=== PATIENT | male | born 1950 | race Caucasian/White ===

== ENCOUNTER 2018-03-24 05:00 | Day surgery (SDC) | payer OTHER ==
[~2018-03-24 05:00] MED LIST: ASA81 MG PO; ATORVASTATIN CA40 MG PO; EFFER-K 10 MEQ10 MEQ PO; GLIPIZIDE XL5 MG PO; ISOSORBIDE MONO60 MG PO; LISINOPRIL20 MG PO; NIFEDIPINE ER60 MG PO; NITROSTAT0.4 MG SL; RANITIDINE HCL300 M1 PO; TOPROL XL25 MG PO
[2018-03-24] MEDS ORDERED: PERCOCET 5-3251 EACH PO (08:51)
[2018-03-24] MEDS ORDERED: RECTICARE30 GM TOP (08:56)
== END 2018-03-24 15:00 | disposition home or self-care (01) ==
LOC: CIR.AMB 05:00
DX: K62.2 Anal prolapse (principal); K64.8 Other hemorrhoids